=== PATIENT | male | born 1980 | race Caucasian/White ===

== ENCOUNTER 2017-03-30 07:05 | Inpatient (IN) | payer MEDICAID ==
--- NOTE | 2017-03-30 07:44 | ED Physician Chart ---
Chief Complaint/HPI - Patient Information Date Seen:: 03/30/17 Time Seen:: 07:30 Chief Complaint:: left ankle pain History of Present Illness:: Patient had spontaneous onset of left lateral ankle pain yesterday. Patient denies trauma. Patient had a similar episode 2 months ago which resolved after 5 days. Allergies:: Allergies Allergy/AdvReac Type Severity Reaction Status Date / Time No Known Allergies Allergy Verified 03/30/17 07:23 Vitals:: Vital Signs - 8 hr 03/30/17 07:10 Temp 98.3 F HR 66 RR 16 BP 139/72 O2 Sat % 97 Historian:: Patient Review:: Nurse's Note Reviewed Review of Systems - Review of Systems General/Constitutional: No fever, No chills Skin: No skin lesions Head: No headache Eyes: No loss of vision ENT: No earache Neck: No neck pain Cardio Vascular: No chest pain, No palpitations Pulmonary: No SOB GI: No nausea, No vomiting G/U: No dysuria Musculoskeletal: Bone or joint pain Endocrine: No polyuria, No polydipsia Psychiatric: No prior psych history, No depression Hematopoietic: No bruising, No lymphadenopathy Allergic/Immuno: No urticaria, No angioedema Neurological: No syncope, No focal symptoms, No headache Past Medical History - Past Medical History Past Medical History: No significant medical hx Family History: None Social History: Non Smoker, No Alcohol Surgical History: None Psychiatricy History: None Medication: None Family Medical History - Family Member Mother Other Medical History: denies family medical history Physical Exam - Physical Examination General/Constitutional: Well-developed, well-nourished Head: Atraumatic Eyes: Lids, conjuctiva normal, PERRL Other Skin comments:: 5 cm of redness and tenderness over the lateral aspect of her left ankle. There is tenderness of the lateral left lower leg extending up to about 15 cm proximal to the lateral malleolus. ENMT: External ears, nose nl Neck: No nuchal rigidity Respiratory: Nl effort/Exclusion, Clear to Auscultation, No Wheeze/Rhonchi/Rales Cardio Vascular: RRR, No murmur, gallop, rubs, NL S1 S2 GI: No tenderness/rebounding/guarding, No organomegaly, No hernia, Normal BS's, Nondistended, No mass/bruits, No McBurney tenderness : No CVA tenderness Extremities: No tenderness or effusion Neuro/Psych: Alert/oriented, No focal deficits Misc: Normal back Labs/Radiology/EKG Results - Lab Results Results: Laboratory Results - last 24 hr 03/30/17 03/30/17 03/30/17 07:55 07:55 08:00 WBC 12.2 H RBC 5.44 Hgb 15.3 Hct 45.0 MCV 82.7 MCH 28.1 MCHC Differential 33.9 RDW 12.2 Plt Count 259 MPV 8.8 Neutrophils % 55.5 Lymphocytes % 27.9 Monocytes % 5.9 Eosinophils % 10.0 H Basophils % 0.7 Sodium Potassium Chloride Carbon Dioxide Anion Gap BUN Creatinine Est GFR ( Amer) Est GFR (Non-Af Amer) BUN/Creatinine Ratio Glucose Whole Bld Lactic Acid 1.29 Uric Acid 8.5 H Calcium Magnesium 03/30/17 08:00 WBC RBC Hgb Hct MCV MCH MCHC Differential RDW Plt Count MPV Neutrophils % Lymphocytes % Monocytes % Eosinophils % Basophils % Sodium 135 L Potassium 4.4 Chloride 105 Carbon Dioxide 26.4 Anion Gap 8.0 BUN 12 Creatinine 0.8 Est GFR ( Amer) > 60.0 Est GFR (Non-Af Amer) > 60.0 BUN/Creatinine Ratio 15.0 Glucose 106 H Whole Bld Lactic Acid Uric Acid Calcium 9.3 Magnesium 2.2 - Radiology Results Results: Left ankle x-ray showed normal bony structures. However there appears to be air in the soft tissue. I discussed the x-ray with Dr. Crews and he agreed that there was increased air in the soft tissue Assessment - Assessment General Assessment: I am worried about a soft tissue infection caused by a gas-forming organism. Patient's pain seems out of proportion to the physical findings. I presented the patient to Dr. Vivek Benton and he agreed that the patient should be admitted. Patient will be given clindamycin [address] Benton's suggestion. ED Septic Shock - . Is Septic Shock (SBP<90, OR Lactate>4 mmol\L) present?: No - <6hrs of presentation: Vital Signs: Vital Signs - 8 hr 03/30/17 07:10 Temp 98.3 F HR 66 RR 16 BP 139/72 O2 Sat % 97 Reassessment (Disposition) - Reassessment Reassessment Condition:: Unchanged - Diagnosis Diagnosis:: Cellulitis left ankle and left lower leg. - Patient Disposition Admitted to:: Med/Surg Spoke to:: Vivek Benton Admitting Medical Physician:: Vivek Benton Condition at Disposition:: Stable, Unchanged
[2017-03-30] MEDS ORDERED: Hydrocodone/APAP 10 mg/325 mg Tab ONE (08:06)
[2017-03-30 08:10] LABS: % BASOPHILS 0.7 % (0.0-2.0); % LYMPHOCYTES 27.9 % (20.0-50.0); % MONOCYTES 5.9 % (2.0-10.0); % NEUTROPHILS 55.5 % (40.0-80.0); HEMOGLOBIN 15.3 gm/dL (13.2-17.3); MEAN CELL VOLUME 82.7 fl (80-99); MEAN CORPUSCULAR HEMOGLOBIN 28.1 pg (26.0-30.0); MEAN CORPUSCULAR HGB CONC 33.9 pg (28.0-36.0); MEAN PLATELET VOLUME 8.8 fl; NEUTROPHILE ABSOLUTE 6.8 Th/cmm (1.8-8.0); PLATELET COUNT 259 Th/cmm (150-400); RED BLOOD COUNT 5.44 Mil/cmm (4.30-5.70); RED CELL DISTRIBUTION WIDTH 12.2 % (11.5-20.0)
[2017-03-30] MEDS ORDERED: Hydrocodone/APAP 10 mg/325 mg Tab PO STA (08:15)
[2017-03-30 08:17] LABS: WHITE BLOOD COUNT 12.2 Th/cmm (4.8-10.8)
[2017-03-30 08:30] LABS: BUN - UREA NITROGEN 12 mg/dL (7-25); CALCIUM SERUM 9.3 mg/dL (8.6-10.3); CARBON DIOXIDE 26.4 mEq/L (21.0-31.0); CHLORIDE 105 mEq/L (98-107); CREATININE - SERUM 0.8 mg/dL (0.7-1.3); GLUCOSE 106 mg/dL (70-105); MAGNESIUM 2.2 mg/dL (1.9-2.7); POTASSIUM SERUM 4.4 mEq/L (3.5-5.1); SODIUM SERUM 135 mEq/L (136-145)
--- NOTE | 2017-03-30 08:57 | Diagnostic Imaging Report ---
Left ankle (2 views) HISTORY: Pain Soft tissue swelling noted over the lateral aspect of the ankle. No acute bony abnormalities. No fractures. Joint spaces appear normal. IMPRESSION: 1. Soft tissue swelling over the lateral aspect of the ankle 2. No acute bony abnormalities
[2017-03-30] MEDS ORDERED: Maalox 30 mL Cup PO PRN (10:03)
[2017-03-30] MEDS ORDERED: Morphine Sulfate 2 mg/mL 1mL Syr IVP PRN (10:03)
[2017-03-30] MEDS ORDERED: Hydrocodone/APAP 10 mg/325 mg Tab PO PRN (10:03)
[2017-03-30] MEDS ORDERED: Magnesium Hydroxide (MOM) 30 mL UDC PO PRN (10:03)
--- NOTE | 2017-03-30 10:26 | Admit Criteria Form ---
Admit Criteria Forms - Admit Criteria Diagnosis: CELLULITIS Clinical Indications for Admission to Inpatient Care (Place 'X' for any and all applicable criteria): Admission is indicated for ANY ONE of the following(1)(2)(3)(4)(5): [ ]I. Limb-threatening infection [ ]II. High-risk comorbid condition as indicated by ANY ONE of the following: [ ]a) Uncontrolled diabetes (eg, HbA1c greater than 10% (0.1)) [ ]b) Cirrhosis [ ]c) Neutropenia [ ]d) Asplenia [ ]e) Immunosuppression [ ]f) Symptomatic heart failure [ ]III. Failure of outpatient therapy as indicated by ALL of the following: [ ]a) Progression or no improvement after adequate trial (minimum of 48 hours, with longer period for stable lower extremity infection) [ ]b) Adequate antibiotic regimen as indicated by use of ANY ONE of the following: [ ]i) First-generation cephalosporin (e.g., cephalexin) [ ]ii) Antistaphylococcal penicillin (e.g., dicloxacillin) [ ]iii) Penicillin-allergic patient regimen (clindamycin, extended-spectrum fluoroquinolone, or doxycycline) [ ]iv) Resistant organism (eg, methicillin-resistant Staphylococcus aureus) regimen (6) [ ]c) Outpatient intravenous therapy regimen is not appropriate due to ANY ONE of the following. (7)(8)(9)(10): [ ]i) It was tried and was not successful (eg, progression of infection). [ ]ii) It is not available or cannot be arranged in a clinically appropriate time frame (e.g., the next day). [ ]iii) Clinical presentation (eg, acuity of infection, rapidity of progression, confirmed or suspected bacteremia) is judged to require ALL of the following: [ ]1) Immediate initiation of intravenous therapy ( eg, cannot wait for next day) [ ]2) Intensity of patient monitoring and observation (eg, vital sign measurement, checks for infection progression) that cannot be provided at other than inpatient level of care [ ]IV. Mental status changes [ ]V. Bacteremia [ ]. Hemodynamic instability [ X]VII. Suspected necrotizing soft tissue infection (e.g., gas in tissue)(11)( 12) [ ]VIII. Orbital infection (13)(14) [ ]IX. Associated surgical procedure (e.g., abscess drainage, debridement) not amenable to outpatient, emergency department, or observation care [ ]X. Cutaneous gangrene [ ]XI. High fever (temperature greater than 39.5 degrees C (103.1 degrees F) (oral)) not responsive to outpatient, emergency department, or observation care therapy [X ]XIII. Inpatient admission required rather than observation care (Also use Cellulitis: Observation Care as appropriate) because of ANY ONE of the following : [ ]a) Periorbital or perineal infection that is severe or worsening [ ]b) Severe pain requiring acute inpatient management [ ]c) IV fluid to replace significant ongoing (e.g., for over 24 hours) losses (greater than 3L/m2 per day) [ ]d) Compartment syndrome monitoring (17) [ ]e) Strict or protective (eg, laminar flow) isolation [ ]f) Urgent debridement or skin grafting [ ]g) Bone or joint debridement [ ]h) Immediate inpatient surgery [X ]i) Other condition, treatment or monitoring requiring inpatient admission Extended stay beyond goal length of stay may be needed for (1)(18): [ ]a) Necrotizing soft tissue infection or fasciitis [ ]b) Gram-negative infection [ ]c) Methicillin-resistant Staphylococcal aureus (MRSA) infection [ ]d) Peripheral venous insufficiency with cellulitis [ ]e) Extensive edema [ ]f) Sepsis or continued Hemodynamic instability [ ]g) Continued high fever or mental status change [ ]h) Bacteremia [ ]i) Active serious comorbid conditions ( eg, heart failure, renal insufficiency) The original [facility] [employer] content created by [facility] [employer] has been revised. The portions of the content which have been revised are identified through the use of italic text or in bold, and [facility] has neither reviewed nor approved the modified material. All other unmodified content is copyright [facility] Please see references footnoted in the original [facility] edition 2016 Admit Criteria Met?: Yes
[2017-03-30 10:29] LABS: PROTHROMBIN TIME (TEST) 9.3 SECONDS (9.5-11.5)
[2017-03-30 10:32] LABS: PLATELET COUNT-DIC PANEL 259 Th/cmm (150-750)
--- NOTE | 2017-03-30 10:52 | Diagnostic Imaging Report ---
Ultrasound left (soft tissues) HISTORY: Swelling Sonographic sector images were obtained over the soft tissues of the left ankle. The exam demonstrates generalized heterogeneity over the lateral aspect of the ankle. There are several heterogeneous slightly hypoechoic foci within the soft tissues within the posterior lateral aspect of the ankle. Findings most likely associated with inflammatory change. No discrete loculated fluid collections are seen. IMPRESSION: 1. Generalized heterogeneous soft tissue swelling with several somewhat ill-defined regions as noted above. Findings most likely associated with an inflammatory etiology. No discrete loculated fluid collections are seen.
--- NOTE | 2017-03-30 12:44 | Consultation ---
Consult Note - Consult Note Service Date: 03/30/17 Referring Physician: Vivek Ribeiro Consult Note: PHYSICIAN Consultation Note: Date of Admission: 03/30/17 Purpose of Consultation: Chief Complaint:Patient SEU FERNANDO was admitted to location Medical/Surgical Unit I with CELLULITIS ANKEL. History of Present Illness: Patient is 36 y male presented to the hospital for swelling and redness of the left ankle laterally for last 4 days. He denies any trauma. He denies any fever or chills. Past Medical History: Allergies Allergy/AdvReac Type Severity Reaction Status Date / Time No Known Allergies Allergy Verified 03/30/17 07:23 Vital Signs Temp 97.8 F 03/30/17 11:10 Pulse 78 03/30/17 11:10 Resp 16 03/30/17 11:10 BP 132/71 03/30/17 11:10 Pulse Ox 99 03/30/17 10:09 Home Medication Medication Instructions Recorded Type NK [No Home Meds] 03/30/17 History Current Medications Generic Name Dose Route Start Last Admin Trade Name Freq PRN Reason Stop Dose Admin Acetaminophen 650 mg 03/30/17 10:03 Tylenol PO 05/29/17 10:02 Q4H PRN Mild Pain/Headache/T above 101 Acetaminophen/Hydrocodone Bitart 1 tab 03/30/17 10:03 Wyocena 10 Mg/325 Mg PO 05/29/17 10:02 Q6H PRN Moderate Pain Al Hydrox/Mg Hydrox/Simethicone 30 ml 03/30/17 10:03 Maalox PO 05/29/17 10:02 Q6H PRN Dyspepsia Colchicine 0.6 mg 03/30/17 10:15 Colcrys PO 05/29/17 10:14 DAILY PARVIN Sodium Chloride 1,000 mls @ 100 mls/hr 03/30/17 10:15 Nacl 0.9% IV 05/29/17 10:14 .Q10H PARVIN Magnesium Hydroxide 30 ml 03/30/17 10:03 Milk Of Magnesia PO 05/29/17 10:02 HS PRN Constipation Miscellaneous 1 ea 03/30/17 12:45 Vancomycin Iv Per Pharmacy [facility] 05/29/17 12:44 PRN PARVIN Morphine Sulfate 2 mg 03/30/17 10:03 Morphine IVP 07/03/17 10:02 Q4H PRN Severe Pain Temazepam 15 mg 03/30/17 10:03 Restoril PO 05/29/17 10:02 HS PRN Insomnia Protocol Review of Systems: A 12 point ROS was reviewed with the pertinent positive and negatives noted in the HPI. Physical Exam: General: Comfortable, not any distress. HEENT:Head is normocephalic, atraumatic on inspection. Oral cavity moist, pink tongue. EYES: EOMI Bilaterally, PERRLA Bilaterally. Neck: Supple, no JVD, no carotid bruit. Cardio: +S1/S2 Auscultated, RRR, no murmurs/rubs/gallops noted Respiratory: Clear to Auscultate Bilaterally Abdominal: Soft, Nondistended, Nontender to palpation x 4 quadrants Extremities: No Edema noted in the lower extremities. Left ankle swelling of the skin overlying the lateral malleolus. Neurological: Alert and Oriented x3, No Acute Distress, cranial Nerves II-XII intact bilaterally, Gait Steady, No Focal Deficits noted. Assessment/Plan: Cellulitis r/o abscess of the left ankle. leukocytosis. Will continue vanco IV and ask for surgical consultation. Thank you Dr Vivek ribeiro for involving me in taking care of the patient. Signed, Mendoza Ribeiro M.D. [id number]
[2017-03-30] MEDS ORDERED: Vancomycin HCl 1.5 GM in Sodium Chloride 0.9% 500 ML IV SCH (13:00)
--- NOTE | 2017-03-30 13:04 | General Progress Note ---
Subjective - Review of Systems Service Date: 03/30/17 Events since last encounter: pain, swelling lateral aspect of left ankle for 2 days, denies trauma previous episode resolved spontaneously labs and xray noted US - no abscess suggest add moist hot compress Objective - Results Result Diagrams: 03/30/17 08:00 03/30/17 08:00 Recent Labs: Laboratory Last Values WBC 12.2 Th/cmm (4.8-10.8) H 03/30/17 08:00 RBC 5.44 Mil/cmm (4.30-5.70) 03/30/17 08:00 Hgb 15.3 gm/dL (13.2-17.3) 03/30/17 08:00 Hct 45.0 % (39.0-49.0) 03/30/17 08:00 MCV 82.7 fl (80-99) 03/30/17 08:00 MCH 28.1 pg (26.0-30.0) 03/30/17 08:00 MCHC Differential 33.9 pg (28.0-36.0) 03/30/17 08:00 RDW 12.2 % (11.5-20.0) 03/30/17 08:00 Plt Count 259 Th/cmm (150-400) 03/30/17 08:00 MPV 8.8 fl 03/30/17 08:00 Neutrophils % 55.5 % (40.0-80.0) 03/30/17 08:00 Lymphocytes % 27.9 % (20.0-50.0) 03/30/17 08:00 Monocytes % 5.9 % (2.0-10.0) 03/30/17 08:00 Eosinophils % 10.0 % (0.0-5.0) H 03/30/17 08:00 Basophils % 0.7 % (0.0-2.0) 03/30/17 08:00 Plt Count 259 Th/cmm (150-750) 03/30/17 08:00 PT 9.3 SECONDS (9.5-11.5) L 03/30/17 08:00 INR 0.90 (0.5-1.4) 03/30/17 08:00 PTT (Actin FS) 25.2 SECONDS (26.0-38.0) L 03/30/17 08:00 Fibrinogen 291.0 mg/dL (200.0-400.0) 03/30/17 08:00 D-Dimer < 100 ng/mL (100-400) L 03/30/17 08:00 Sodium 135 mEq/L (136-145) L 03/30/17 08:00 Potassium 4.4 mEq/L (3.5-5.1) 03/30/17 08:00 Chloride 105 mEq/L (98-107) 03/30/17 08:00 Carbon Dioxide 26.4 mEq/L (21.0-31.0) 03/30/17 08:00 Anion Gap 8.0 (7.0-16.0) 03/30/17 08:00 BUN 12 mg/dL (7-25) 03/30/17 08:00 Creatinine 0.8 mg/dL (0.7-1.3) 03/30/17 08:00 Est GFR ( Amer) > 60.0 ml/min (>90) 03/30/17 08:00 Est GFR (Non-Af Amer) > 60.0 ml/min 03/30/17 08:00 BUN/Creatinine Ratio 15.0 03/30/17 08:00 Glucose 106 mg/dL (70-105) H 03/30/17 08:00 Whole Bld Lactic Acid 1.29 mmol/L (0.60-1.99) 03/30/17 07:55 Uric Acid 8.5 mg/dL (4.4-7.6) H 03/30/17 07:55 Calcium 9.3 mg/dL (8.6-10.3) 03/30/17 08:00 Magnesium 2.2 mg/dL (1.9-2.7) 03/30/17 08:00 - Physical Exam Vitals and I&O: Vital Signs Temp 97.8 F 03/30/17 11:10 Pulse 78 03/30/17 11:10 Resp 16 03/30/17 11:10 BP 132/71 03/30/17 11:10 Pulse Ox 99 03/30/17 10:09 Active Medications: Current Medications Acetaminophen (Tylenol) 650 mg PO Q4H PRN PRN Reason: Mild Pain/Headache/T above 101 Stop: 05/29/17 10:02 Acetaminophen/Hydrocodone Bitart ([place] 10 Mg/325 Mg) 1 tab PO Q6H PRN PRN Reason: Moderate Pain Stop: 05/29/17 10:02 Al Hydrox/Mg Hydrox/Simethicone (Maalox) 30 ml PO Q6H PRN PRN Reason: Dyspepsia Stop: 05/29/17 10:02 Colchicine (Colcrys) 0.6 mg PO DAILY PARVIN Stop: 05/29/17 10:14 Sodium Chloride (Nacl 0.9%) 1,000 mls @ 100 mls/hr IV .Q10H PARVIN Stop: 05/29/17 10:14 Vancomycin HCl 1.5 gm/ Sodium (Chloride) 500 mls @ 250 mls/hr IV Q12H PARVIN Stop: 05/29/17 12:59 Magnesium Hydroxide (Milk Of Magnesia) 30 ml PO HS PRN PRN Reason: Constipation Stop: 05/29/17 10:02 Miscellaneous (Vancomycin Iv Per Pharmacy) 1 ea MC PRN PARVIN Stop: 05/29/17 12:44 Morphine Sulfate (Morphine) 2 mg IVP Q4H PRN PRN Reason: Severe Pain Stop: 05/29/17 10:02 Temazepam (Restoril) 15 mg PO HS PRN; Protocol PRN Reason: Insomnia Stop: 05/29/17 10:02
[2017-03-30] MEDS: Sodium Chloride 0.9% 1,000 ML IV SCH (16:13)
--- NOTE | 2017-03-30 18:31 | History & Physical ---
ADMIT DATE: 03/30/2017 REASON FOR ADMISSION: Left lateral malleolus swelling with question of gas under the skin for cellulitis. HISTORY OF PRESENT ILLNESS: The patient is a 36-year-old gentleman with not any medical condition, not taking any medication. At home 2 days ago, started having left lateral ankle getting swollen and he is having hard time walking, so came to the Emergency Room. X-rays have a question of the gas under the skin. The patient is being admitted. The patient denies any injuries. No breaking down of the skin. The patient denies any fevers, chills though the patient is taking Tylenol to help improving his pain, but it did not help with the use of Tylenol. ALLERGIES: None. MEDICATIONS: None. SOCIAL HISTORY: No smoking. No alcohol or substance abuse. PAST MEDICAL HISTORY: No diabetes. No gout. FAMILY HISTORY: No gouts. REVIEW OF SYSTEMS: The patient denies any headache, vision problems, swallowing problem, chest pain, chest pressure, palpitation. No cough or sputum production. Denies any abdominal pain, nausea, vomiting, diarrhea, or melena. No previous gout or previous joint swelling. No local injuries to the left ankle. No breaking of the skin. No leg swelling or joint swelling. No rashes. Denies any headache, vision problems, swallowing problem. No numbness or weakness in the extremities. PHYSICAL EXAMINATION: VITAL SIGNS: Blood pressure 132/71, pulse 78, respiratory rate 16, temperature maximum 98.3, current temperature is 97.8, height 1.68 meter, weight 83.9 kg, BMI 29.9 kg. HEENT: Unremarkable. NECK: Supple. No JVD, bruit, or lymphadenopathy. LUNGS: Clear. CARDIOVASCULAR: S1, S2 normal limits. No murmur, gallop or bruit. ABDOMEN: Soft, nontender, no hepatosplenomegaly. Bowel sound is active in all quadrants. EXTREMITIES: Dorsalis pedis palpable. No leg edema noted. Obvious swelling of the left lateral malleolus is present, but no local redness or heat, significant amount of tenderness on palpitation, but no gas palpated. No crepitus noted on the skin exam. No local redness. No local heat. ROM of the left ankle is normal. The patient is limping when he walks, otherwise nonfocal examination. MUSCULOSKELETAL: No clubbing, cyanosis, or synovitis. LABORATORY TESTS: WBC is 12,000, hemoglobin 15, MCV 82 and a platelet of 259,000, neutrophil is 55, eosinophil is elevated at 10, platelet count is 259,000. Protime is 9.3, PTT 25, fibrinogen level normal at 291 and D-dimer is 100. Sodium 135, potassium 4.4, chloride 105, bicarbonate 26, BUN 12, creatinine 0.8 and glucose of 106. Lactic acid is normal at 1.2, uric acid 8.5, which is elevated, normal is 4.4-7.6. Calcium 9.3, magnesium 2.2. X-rays of the left ankle is essentially unremarkable, no mention of gas by official report by Dr. Donnie M.D. as he had spoken with radiologist and he was mentioning that soft tissue is swollen and several small somewhat ill-defined regions are noted. Most likely inflammatory etiology. No discrete or loculated fluid collection seen. ASSESSMENT AND PLAN: 1. Left lateral ankle swelling, most likely inflammatory in nature, could be gout versus sprain. I doubt gas gangrene at present time, 2. Cellulitis of the left lateral malleolus of the ankle, possible, but not likely, empirically give clindamycin as patient also had elevated wbc's. 3. Elevated WBC with eosinophil count increase, most likely reactive. 4. Elevated uric acid, could be the gout attack. We will empirically give ibuprofen and colchicine. Monitor CBCs. If improved, we will be able to discharge on 03/31/2017. Case discussed with Dr. Rosenthal who thinks there is no gas gangrene and no need for surgical intervention. ID consult with Dr. Mendoza Benton obtained. JOB# [id number]
[2017-03-30] MEDS: Clindamycin 300mg/50mL 300 MG/50 ML BAG IV SCH (21:04)
[2017-03-31] MEDS: Sodium Chloride 0.9% 1,000 ML IV SCH (05:13)
[2017-03-31] MEDS: Clindamycin 300mg/50mL 300 MG/50 ML BAG IV SCH (05:16)
[2017-03-31 06:47] LABS: HEMATOCRIT 41.7 % (39.0-49.0); HEMOGLOBIN 14.3 gm/dL (13.2-17.3); MEAN CELL VOLUME 81.9 fl (80-99); MEAN CORPUSCULAR HEMOGLOBIN 28.1 pg (26.0-30.0); MEAN CORPUSCULAR HGB CONC 34.3 pg (28.0-36.0); MEAN PLATELET VOLUME 8.8 fl; PLATELET COUNT 239 Th/cmm (150-400); RED BLOOD COUNT 5.09 Mil/cmm (4.30-5.70); RED CELL DISTRIBUTION WIDTH 12.3 % (11.5-20.0); WHITE BLOOD COUNT 10.2 Th/cmm (4.8-10.8)
[2017-03-31 07:04] LABS: ALB/GLOB RATIO 1.4 (1.0-1.8); ALKALINE PHOSPHATASE 72 U/L (34-104); BILIRUBIN,TOTAL 0.6 mg/dL (0.3-1.0); BUN - UREA NITROGEN 14 mg/dL (7-25); BUN/CREATININE RATIO 15.6; CARBON DIOXIDE 26.4 mEq/L (21.0-31.0); CHLORIDE 107 mEq/L (98-107); CREATININE - SERUM 0.9 mg/dL (0.7-1.3); GLUCOSE 106 mg/dL (70-105); POTASSIUM SERUM 4.4 mEq/L (3.5-5.1); SGOT 35 U/L (13-39); SGPT/ALT 71 U/L (7-52); SODIUM SERUM 134 mEq/L (136-145)
[2017-03-31 07:29] LABS: EOSINOPHIL 14 % (0-5); NEUTROPHILS 30 % (40-80); PLATELET MORPHOLOGY GIANT PLATELETS SEEN (NORMAL); TOTAL CELLS COUNTED 100
[2017-03-31 07:30] LABS: PLATELET ESTIMATE ADEQUATE (NORMAL)
--- NOTE | 2017-03-31 19:23 | Consultation ---
DATE OF CONSULTATION: 03/30/2017 REFERRING PHYSICIAN: Dr. Vivek Benton. REASON FOR CONSULTATION: Swelling, tenderness left lateral ankle. Thank you for referring this patient to me. HISTORY OF PRESENT ILLNESS: This is a 36-year-old male who claims 2 days ago, he started having pain and swelling in the lateral aspect of the left ankle at the tip of the malleolus. He denied any trauma associated with this. He claimed this has happened in the past and resolved spontaneously. PAST MEDICAL HISTORY: Unremarkable. LABORATORY STUDIES: Showed WBC at 12,200. Chemistry, there is elevation of the uric acid to 8.5. Otherwise, chemistry is normal. IMAGING: The ankle x-ray showed soft tissue swelling of the ankle over the lateral aspect of the lateral malleolus. Ultrasound study was done and this showed soft tissue swelling. No discrete loculated fluid collections are found. PHYSICAL EXAMINATION: There is a 2 mm size swelling in the lateral aspect of the malleolus and there is tender with minimal cellulitis surrounding this. ASSESSMENT AND PLAN: Etiology is questionable, likely just cellulitis, but the question of gout secondary to the uric acid elevation is entertained as well. Discussed with Dr. Benton, attending physician. No need for surgical intervention now. Thank you, Dr. Benton. JOB# [id number]
--- NOTE | 2017-03-31 20:24 | Discharge Summary ---
DATE OF DISCHARGE: 03/31/2017 FINAL DIAGNOSES: 1. Left lateral ankle inflammation most likely secondary to gout. 2. Hyperuricemia. 3. Question of cellulitis, most likely appears inflammation. 4. Leukocytosis with eosinophilia, which is now resolved. 5. Slightly elevated ALT, most likely from the fatty liver. 6. Exogenous obesity with BMI of 29.9. HOSPITAL COURSE AND IMPORTANT LABS: A 36-year-old gentleman with no previous medical history, not taking any medication, few days history of pain in left lateral malleolus area with swelling. The patient took Tylenol, did not help, came to the Emergency Room, question of gas under the skin was raised by the Emergency Room doctor, so ultrasound of the area done which revealed inflammation. The patient admitted, empirically given clindamycin. ID consult obtained and given vancomycin by ID specialist, blood culture now negative, WBC from 12,000 came down to 10,000; eosinophil is 14, fasting blood sugar 106, AST 35, ALT 71, alkaline phosphatase 72, bilirubin is normal. Magnesium normal at 2.2, calcium normal at 9.3, uric acid 8.5, slightly elevated. Sodium 134, potassium 4.4, chloride 107, bicarb 26, BUN 14, creatinine 0.9. The patient will be discharged home on the colchicine 0.6 mg once a day and ibuprofen 600 mg 3 times a day. Antibiotic will be decided by Infectious Disease specialist but patient sign out before ID visit him. Via interpreter translator, explained the patient that his condition is lifelong and he needs to eat small portion many times and avoid high protein diet and dehydration. The patient is not a smoker or alcohol. Also advised the patient to stay away from smoking and alcohol, also follow up with primary care physician to go on allopurinol as patient currently in acute phase, needs to wait up till current episode improves and establishes with primary care physician. JOB# [id number]
== END 2017-03-31 18:25 | disposition left against medical advice (07) | DRG 383 ==
LOC: ER 07:05 → MSI 10:05
PROVIDERS: ADMIT Internal Medicine; ATTEND Internal Medicine
DX: L03.116 Cellulitis of left lower limb (principal); K76.0 Fatty (change of) liver, not elsewhere classified; M10.9 Gout, unspecified; E66.09 Other obesity due to excess calories; Z68.29 Body mass index [BMI] 29.0-29.9, adult; Z53.21 Procedure and treatment not carried out due to patient leaving prior to being seen by health care provider; E79.0 Hyperuricemia without signs of inflammatory arthritis and tophaceous disease
CPT/HCPCS: 36415-UA; 73600-LT-TC; 76881-TC-LT; 80048-TC; 80053-TC; 80202-TC; 83605; 83735-TC; 84550-TC; 85007-TC; 85025-TC; 85027-TC; 85049-TC; 85379-TC; 85384-TC; 85610-TC; 85730-TC; J3370; J3490; J7030; J7040; X5958; Z7610